=== PATIENT | female | born 2000 | race Caucasian/White ===

== ENCOUNTER 2022-11-23 05:02 | Inpatient (IN) | payer OTHER, MEDICAID, SELFPAY ==
[2022-11-23] VITALS (150 sets, daily range): BP systolic 88–152; BP diastolic 29–133; PULSE 70–187; RESP 18; TEMP 36.2–37; O2SAT 91–100; BMI 33.5
[2022-11-23 05:34] LABS: Basophils Percent Auto 0.4 % (0.2-1.2); Eosinophils Absolute Auto 0.1 K/mm3 (0-0.3); Eosinophils Percent Auto 0.7 % (0-4.4); Hematocrit 35.3 % (37.0-47.0); Immature Granulocyte Absolute 0.03 K/mm3 (0.00-0.031); Immature Granulocyte Percent A 0.3 % (0-0.5); Lymphocytes Absolute Auto 2.12 K/mm3 (0.9-3.2); Lymphocytes Percent Auto 21.6 % (18.3-44.2); Mean Corpuscular Hemoglobin 28.6 pg (26-34); Mean Corpuscular Volume 84.2 fl (80-100); Mean Platelet Volume 10.6 fl (7.4-10.4); Monocytes Absolute Auto 0.6 K/mm3 (0.1-0.6); Monocytes Percent Auto 5.8 % (2.6-8.5); Neutrophils Percent Auto 71.2 % (45.5-73.1); Platelet Count Result 169 k/mm3 (150-375); Red Blood Count 4.19 M/mm3 (4.2-5.4); Red Cell Distribution Width 13.2 % (11.5-14.5); White Blood Count 9.8 K/mm3 (4.5-10.0)
--- NOTE | 2022-11-23 05:35 | LDADM ---
This patient, Kirsty Perera, was admitted to Labor/Delivery/Recovery 107 on 11/23/22 at 05:02. Plans for labor, pain management and were discussed with patient. Patient/family oriented to hospital policies and general routines including ID bracelet, bed and alarms, visiting hours, pain management, procedures, bathroom and other care routines, personal items, smoking policy, room service/diet and guest tray routines, security routines, and visiting hours. Patient/Family are encouraged to report perceived risks to care and to ask questions if they do not understand what they are told or what they should do. See OBIX for further documentation.
[2022-11-23 05:47] LABS: Alanine Aminotransferase 21 U/L (6-35); Albumin Level 3.9 g/dL (3.5-5.1); Alkaline Phosphatase 174 U/L (38-126); Anion Gap 8 mmol/L (8-16); Aspartate Amino Transferase 20 U/L (14-36); Bilirubin,Total 0.5 mg/dL (0.2-1.3); Blood Urea Nitrogen 8 mg/dL (7-17); Calcium 8.6 mg/dL (8.4-10.2); Carbon Dioxide 20 mmol/L (22-30); Chloride 109 mmol/L (98-107); Estimated CRCL calculation 221 ml/min; Estimated Glomerular Filt Rate > 60; Glucose 90 mg/dL (65-110); Potassium 3.7 mmol/L (3.4-5.0); Sodium 137 mmol/L (137-145); Uric Acid 5.3 mg/dL (2.5-7.5)
[2022-11-23] MEDS: LACTATED RINGERS 1,000 ML 125 ML IV CONT ×4 (05:55→15:47)
[2022-11-23] MEDS: OXYTOCIN 30 UNITS/NS 500 ML 30 UNITS/500 ML BAG 6 UNITS IV CONT (05:55)
--- NOTE | 2022-11-23 06:11 | PM.IMHP ---
H&P: HPI History of Present Illness Date/Time: 11/23/22 06:11 Chief Complaint: Elevated blood pressure at term Narrative: this is a 22-year-old 1 para 0 whose last menstrual period was 02/01/2022, EDC is 12/06/2022, confirmed by 9 week ultrasound, who presents at 37 and 6 7th weeks gestation for induction of labor secondary to elevated blood pressures. PIH labs are being drawn. She is negative for group B strep. Prior to this was uncomplicated. She has a weed smoker [facility] Family History Family History Grandparent Diabetes mellitus Hypertension Grandparent Diabetes mellitus Grandparent Breast cancer Social History Social History Smoking status: Never smoker Substance use: never Lack of Transportation: No Lack of Food: Never True Current Housing: I Have Housing Concerned About Future Housing: No Difficulty Paying Gas/Electric Bills: No Difficulty Paying for Meds: No Currently Unemployed: No Education: High School Diploma/GED Difficulty w/ Childcare or Family Care: No Spiritual care concerns: No Meds Home Medications and Allergies Home Medications Medication Instructions Recorded Confirmed Type prenat.vits,trinidad,ymt-wazy-avqzx 1 tablet PO DAILY 11/10/22 11/23/22 History Allergies Allergy/AdvReac Type Severity Reaction Status Date / Time No Known Allergies Allergy Mild Verified 11/23/22 06:02 Vital Signs Vital Signs - 24 hr 11/23/22 05:33 11/23/22 05:45 11/23/22 06:00 Pulse Rate 92 97 93 Blood Pressure 128/86 138/94 H 127/90 Oxygen Delivery 11/23/22 05:34 Pulse Rate Blood Pressure Oxygen Delivery Room Air Exam Const: General: cooperative, healthy appearing, comfortable and overweight Orientation/consciousness: oriented to person, oriented to place and oriented to time HENMT: Head: normal to inspection Resp: Effort & Inspection: normal respiratory effort Cardio: Rate: regular rate Rhythm: regular rhythm Heart sounds: S1 normal heart sound present and S2 normal heart sound present GI: Inspection: normal to inspection Auscultation: normal bowel sounds : External Female Exam: normal external appearance Speculum Exam - Vagina: normal appearance of the vagina Speculum Exam - Cervix: normal appearance of the cervix ( cervix 275/1. AROM clear. FHTs reassuring) H&P: Results Labs Labs: Short CBC 11/23/22 Range/Units 05:16 WBC 9.8 (4.5-10.0) K/mm3 Hgb 12.0 (12.0-15.0) g/dL Hct 35.3 L (37.0-47.0) % Plt Count 169 (150-375) k/mm3 BMP 11/23/22 05:16 Sodium 137 Potassium 3.7 Chloride 109 H Carbon Dioxide 20 L BUN 8 Creatinine 0.40 L Glucose 90 Calcium 8.6 Liver Function 11/23/22 Range/Units 05:16 Total Bilirubin 0.5 (0.2-1.3) mg/dL AST 20 (14-36) U/L ALT 21 (6-35) U/L Alkaline Phosphatase 174 H (38-126) U/L Albumin 3.9 (3.5-5.1) g/dL Assessment and Plan Assessment and plan (1) Term : Code(s): Z34.90 - Encounter for supervision of normal , unspecified, unspecified trimester Status: Acute (2) Gestational hypertension: Code(s): O13.9 - Gestational [-induced] hypertension without significant proteinuria, unspecified trimester Status: Acute Plan medical induction of labor. Spontaneous vaginal delivery is expected. She has an epidural candidate. [facility] labs are drawn and pending
[2022-11-23 08:45] LABS: Amphetamine Screen Urine Negative (Negative); Barbiturate Screen Urine Negative (Negative); Benzodiazepines Screen Urine Negative (Negative); Cannabinoid Screen Urine Negative (Negative); Cocaine Screen Urine Negative (Negative); Methadone Screen Urine Negative (Negative); Opiate Screen Urine Negative (Negative); Phencyclidine Screen Urine Negative (Negative)
--- NOTE | 2022-11-23 11:26 | WPDANESEPP ---
Anes - Eval Pre Procedure Procedure: Labor epidural Date/Time: 11/23/22 11:26 Surgeon: Amada Black Preop Diagnosis: Pain during labor Pre Op Diagnosis: IOL Patient Data Age: 22 Gender: F Height: 1.73 m Weight: 100 kg Last Vital Signs Temp 36.2 C L 11/23/22 08:17 Pulse 82 11/23/22 11:00 BP 129/84 11/23/22 11:00 O2 Del Method Room Air 11/23/22 05:34 Allergies Allergy/AdvReac Type Severity Reaction Status Date / Time No Known Allergies Allergy Mild Verified 11/23/22 06:02 Home Medications Medication Instructions Recorded Confirmed Type prenat.vits,trinidad,urf-azqm-mmfxg 1 tablet PO DAILY 11/10/22 11/23/22 History Laboratory Tests 11/23/22 11/23/22 11/23/22 05:16 05:16 05:16 WBC 9.8 K/mm3 K/mm3 (4.5-10.0) RBC 4.19 M/mm3 L M/mm3 (4.2-5.4) Hgb 12.0 g/dL g/dL (12.0-15.0) Hct 35.3 % L % (37.0-47.0) MCV 84.2 fl fl (80-100) MCH 28.6 pg pg (26-34) MCHC 34.0 g/dl g/dl (32-36) RDW 13.2 % % (11.5-14.5) Plt Count 169 k/mm3 k/mm3 (150-375) MPV 10.6 fl H fl (7.4-10.4) Immature Gran % (Auto) 0.3 % % (0-0.5) Neut % (Auto) 71.2 % % (45.5-73.1) Lymph % (Auto) 21.6 % % (18.3-44.2) Kemper % (Auto) 5.8 % % (2.6-8.5) Eos % (Auto) 0.7 % % (0-4.4) Baso % (Auto) 0.4 % % (0.2-1.2) Lymph # (Auto) 2.12 K/mm3 K/mm3 (0.9-3.2) Kemper # (Auto) 0.6 K/mm3 K/mm3 (0.1-0.6) Eos # (Auto) 0.1 K/mm3 K/mm3 (0-0.3) Baso # (Auto) 0.0 K/mm3 K/mm3 (0.0-0.1) Abs Immat Gran (auto) 0.03 K/mm3 K/mm3 (0.00-0.031) Absolute Neuts (auto) 7.0 K/mm3 H K/mm3 (1.3-6.7) Absolute Nucleated RBC 0.0 K/mm3 K/mm3 (0.0-0.012) Nucleated RBC % 0.0 % % (0.0-0.2) Sodium Potassium Chloride Carbon Dioxide Anion Gap BUN Creatinine Estim Creat Clear Calc Estimated GFR Glucose Uric Acid 5.3 mg/dL mg/dL (2.5-7.5) Calcium Total Bilirubin AST ALT Alkaline Phosphatase Total Protein Albumin Urine Opiates Screen Urine Methadone Screen Ur Barbiturates Screen Ur Phencyclidine Scrn Ur Amphetamine Screen U Benzodiazepines Scrn Urine Cocaine Screen U Cannabinoids Screen RPR Pending Blood Type Antibody Screen 11/23/22 11/23/22 11/23/22 05:16 05:16 08:15 WBC RBC Hgb Hct MCV MCH MCHC RDW Plt Count MPV Immature Gran % (Auto) Neut % (Auto) Lymph % (Auto) Kemper % (Auto) Eos % (Auto) Baso % (Auto) Lymph # (Auto) Kemper # (Auto) Eos # (Auto) Baso # (Auto) Abs Immat Gran (auto) Absolute Neuts (auto) Absolute Nucleated RBC Nucleated RBC % Sodium 137 mmol/L mmol/L (137-145) Potassium 3.7 mmol/L mmol/L (3.4-5.0) Chloride 109 mmol/L H mmol/L (98-107) Carbon Dioxide 20 mmol/L L mmol/L (22-30) Anion Gap 8 mmol/L mmol/L (8-16) BUN 8 mg/dL mg/dL (7-17) Creatinine 0.40 mg/dL L mg/dL (0.7-1.0) Estim Creat Clear Calc 221 ml/min ml/min Estimated GFR > 60 (59 - ) Glucose 90 mg/dL mg/dL (65-110) Uric Acid Calcium 8.6 mg/dL mg/dL (8.4-10.2) Total Bilirubin 0.5 mg/dL mg/dL (0.2-1.3) AST 20 U/L U/L (14-36)
[2022-11-23 15:09] LABS: Rapid Plasma Reagin Non-Reactive (NonReactive)
[2022-11-23] MEDS: SODIUM CHLORIDE 0.9% IV 300 ML 600 ML I-UTERINE (15:54)
--- NOTE | 2022-11-23 16:03 | PM.OBPNLAB ---
Pain Control Date/time seen: 11/23/22 16:03 Pain control: tolerating well and epidural Pelvic Exam Dilation (cm): 7 Effacement (%): 90 station: -1 Amniotic membrane status: Leaking Contractions Monitor mode: Internal
--- NOTE | 2022-11-23 18:05 | PM.OBPRVD ---
OB - Delivery Note Procedure Delivery date: 11/23/22 Procedure: mil Events: Gestational Hypertension Induction method: AROM Delivery augmentation: Pitocin Delivery monitor: Internal FHT and Internal Uterine Route of delivery: Episiotomy description: None Laceration Description: None Specimen: No Quantitative Blood Loss (ml): 160 Anesthesia type: Epidural Disposition: Floor Baby Date of : 11/23/22 Time of : 17:55 Weeks of gestation at delivery: 37 Infant gender: Male presentation: vertex position: Right Occiput Anterior Placenta delivery description: Spontaneous Cord Vessel Description: 3 Vessels and Delayed Cord Clamping score one minute: 8 score five minutes: 9
[2022-11-23] MEDS: OXYTOCIN 30 UNITS/NS 500 ML 30 UNITS/500 ML BAG 125 UNITS IV CONT (18:22)
--- NOTE | 2022-11-23 19:43 | PC.NURSE ---
Report given to
[2022-11-23] MEDS: WITCH HAZEL 40 PADS 1 PAD TOPICAL (19:52)
[2022-11-23] MEDS: BENZOCAINE 20% AER SPR (*SP) 56 GM CAN 1 SPRAY TOPICAL (19:52)
[2022-11-24] VITALS (7 sets, daily range): BP systolic 133–150; BP diastolic 68–93; PULSE 88–101; RESP 18; TEMP 36.3–37.1; O2SAT 97–100
[2022-11-24 05:07] LABS: Hematocrit 33.6 % (37.0-47.0); Hemoglobin 11.2 g/dL (12.0-15.0)
[2022-11-24] MEDS: MULTIVIT/MIN/PREN/FOL AC/IRON TABLET 1 TAB PO (09:30)
--- NOTE | 2022-11-24 09:32 | PM.DS ---
DS: Admitting Diagnosis Discharge Date 11/25/2022 Admitting Diagnosis 37 week with gestational hypertension DS: Discharge Diagnosis Discharge Diagnosis (1) Gestational hypertension: Code(s): O13.9 - Gestational [-induced] hypertension without significant proteinuria, unspecified trimester Status: Acute (2) Term : Code(s): Z34.90 - Encounter for supervision of normal , unspecified, unspecified trimester Status: Acute DS: Summary Hospital Course Reason for hospitalization: the patient was admitted for induction of labor secondary to elevated blood pressures Hospital Course: patient went successful medical induction of labor with spontaneous vaginal delivery of a male. Her blood pressures normalized postoperatively. She remained afebrile. She was up, eating regular ambulating breast-feeding, voiding without difficulty generally without complaints. Time Spent with Patient Time attestation: Total time spent providing and/or coordinating discharge services: Exam Const: General: cooperative, healthy appearing and comfortable Nutritional Appearance: overweight Orientation/consciousness: oriented to person, oriented to place and oriented to time HENMT: Head: normal to inspection Resp: Effort & Inspection: normal respiratory effort Cardio: Rate: regular rate Rhythm: regular rhythm Heart sounds: S1 normal heart sound present and S2 normal heart sound present GI: Inspection: normal to inspection ( Fundus firm below the umbilicus) DS: Data Data Completed and Pending Labs on day of discharge: Labs from last 24 hours 11/24/22 11/23/22 03:36 05:16 Hgb 11.2 L Hct 33.6 L RPR Non-reactive Discharge Plan Discharge Attending physician on discharge: Cesar Mendoza Discharging Clinician: Cesar Mendoza Patient Disposition: Home, Self-Care Activity: may shower, no straining and pelvic rest Diet: as tolerated Wound Care Instructions: follow printed instructions Discharge Instructions: Education: Mom and Baby Guide Given to: Mother Follow-Up: Call your delivering provider's office for an appointment to be seen in: 6 Weeks Mom [facility] baby [facility] for the follow-up appointment. Appointment Date/Time: November 28, 2022 at 11:00 am What to expect at your follow-up visit: Blood Pressure Check Physical Assessment Call [phone] if you are unable to keep your appointment time. BREAST CARE: * Wear a snug supportive bra. * For engorgement discomfort: Breast Feeding: * Apply warm moist washcloths * Express milk as needed to relieve engorgement * Wear loose clothing Bottle Feeding: * May apply ice packs * For sore nipples: * Identify correct latch-on * Apply warm moist washcloths before and after nursing * Air dry nipples after nursing * May apply Lansinoh cream to nipples EPISIOTOMY/PERINEAL CARE: * Until bleeding stops, use your cameron bottle after urinating * Change your pad frequently throughout the day * You may take sitz baths several times a day (fill your bathtub with warm water and soak for 20 minutes.) Do NOT bathe in the water * No tub baths until seen by your physician - You may shower ACTIVITY: * Rest as much as possible. * Do not exercise or lift anything heavier than your baby (such as laundry or other children.) * Avoid stairs or driving as much as possible. * Do not put anything into the vagina. No douching, tampons, or sexual activity until seen by physician. NOTIFY PHYSICIAN IF YOU HAVE ANY QUESTIONS OR IF ANY OF THE FOLLOWING SYMPTOMS OCCUR: * If your vaginal area becomes red, swollen, or more painful than what you have experienced in the hospital. * If your vaginal bleeding becomes foul smelling. * If your vaginal bleeding becomes more heavy than a period or i
--- NOTE | 2022-11-24 10:02 | WPDANLDPN2 ---
Anes-Prog Note L&D Date/Time: 11/24/22 10:02 Comfortable throughout: labor and delivery Neuraxial method: epidural Epidural/Spinal procedure site: clean & non-tender Neuro status: Neuro function grossly intact. Cardiovascular status: normal Respiratory status: normal Airway patency: baseline Mental status: baseline Post-Op hydration status: normal Vital Signs: Last Vital Signs Temp 97.4 F L 11/24/22 09:10 Pulse 92 11/24/22 09:10 Resp 18 11/24/22 09:10 BP 133/68 11/24/22 09:10 Pulse Ox 98 11/24/22 09:10 O2 Del Method Room Air 11/23/22 23:00 Pain score (VAS): 0 I/O: Intake & Output 11/23/22 11/24/22 11/24/22 23:59 07:59 15:59 Intake Total 500 Output Total 230 Balance 270 Post-procedural complaints: none Patient feedback: Patient satisfied with anesthetic care.
--- NOTE | 2022-11-24 11:20 | PC.NURSE ---
Patient viewed the discharge video Mother & Baby Care, The First Two Weeks . Patient was given the opportunity and encouraged to ask questions. Patient verbalized understanding of information shared and has been given the mother/baby guide for home reference.
--- NOTE | 2022-11-24 13:07 | PC.NURSE ---
1140- Introduction was made in the 1st floor nursery. is holding the nipple shield in his mouth and mother is on the phone. Nursery RN reported that mother had just finished with a nipple shield and needed to pump. [id number] Breast pump provided due to separation. Instructions given on cleaning, care, usage, that there should be no pain, pumping schedule for milk production, collection, and storage of human milk. Mother is encouraged to record pumping schedule on the pumping log. Patient was assessed for correct placement, flange size, to pump for comfort and nipple stretching/stimulation for adequate milk production every 3 hours (8 times in 24 hours) 1-2 times at night. Mother voiced understanding of the education shared along with mom and baby guide for additional resource information. Reported to the primary RN.
--- NOTE | 2022-11-24 14:08 | PC.NURSE ---
0720-Down to Level II nursery to breastfeed baby. 0900-Returned back to floor via wheelchair.
--- NOTE | 2022-11-24 14:09 | PC.NURSE ---
1045-Down to Level II nursery to breastfeed baby. 1145-Returned back to floor via wheelchair.
--- NOTE | 2022-11-24 14:32 | PC.NURSE ---
[id number] Consulted with patient to assess needs related to with her in the 1st floor nursery. Encouraged skin to skin before beginning the session and mother wants to attempt to breastfeed without the nipple shield. When skin to skin feeding cues were visualized and Mother demonstrates positioning her to the right breast using the cross cradle position, supporting the breast with a good sandwich hold, with good alignment and pillows for support. would at times latch for a few sucks, at times for about 5 minutes, then when dimpling is seen mother is instructed to remove infant and attempt again. latched several times for a few minutes at a time, then would stop. Mother opted to syringe feed her and declined working with the nipple shield at this time. After supplementing with a 2ml syringe feeding infant was placed skin to skin, then after feeding cues were visualized we reviewed positioning and alignment, supporting breast, off-centered (asymmetrical latch) and leading with the chin with big, open, wide gape. Infant latched optimally to the left breast in football position. Education given to mother of how to visualize suck/swallow ratios and listen for drinking at the breast. was able to maintain latch without discomfort to mother for six minutes, then came off and latched for another nine minutes effectively drinking. Mother states she is drowsy and cramping. Patient declined water and medication at this time. Nipple care reviewed with optimal latch, good positioning and using clean hands when feeding her infant and touching her breast. Resources used to facilitate learning were used earlier from the visual handout, QR codes, tool, mom and baby guide. Mother voiced understanding of the education shared, to call for assistance if the does not latch or if there is discomfort with . Reported to the primary RN.
--- NOTE | 2022-11-24 14:52 | PC.NURSE ---
1330-Down to Level II nursery to breastfeed baby. 1450-Returned back to floor via wheelchair.
--- NOTE | 2022-11-24 16:16 | PC.NURSE ---
1600- Checked with mother on her needs for and offered assistance with the next session. We reviewed good positioning, supporting the breast and giving a big mouthful. Mother states she is confident and she plans to attempt to breastfeed on the right breast using the football position like we did earlier on the left. Mother does teach back to demonstrate her understanding and RN encouraged her efforts. Reported to the Primary RN
[2022-11-25] MEDS: MULTIVIT/MIN/PREN/FOL AC/IRON TABLET 1 TAB PO (08:30)
[2022-11-25] MEDS: DOCUSATE SODIUM 100 MG CAPSULE PO (08:30)
[2022-11-25 09:00] VITALS: BP 126/85; PULSE 90; RESP 14; TEMP 36.9; O2SAT 98
--- NOTE | 2022-11-25 10:47 | PM.OBPNVD ---
OB - PN: Subj Subjective Date/time seen: 11/25/22 10:47 Narrative: Pain OK. Desires circumcision for son. Would like to go home. OB - PN: Obj Data Labs 11/24/22 03:36 11/23/22 05:16 OB - PN A/P Plan day: 2 Comments: A: PPD#2, doing well. HTN, stable without meds. P: Reviewed circ. Home to f/u 6 weeks. Time Spent With Patient Time with patient: less than 15 minutes Exam Psych: Other: AVSS ABD soft, nontender, fundus firm EXT nontender
[2022-11-25 12:30] VITALS: BP 128/86; PULSE 68; RESP 16; TEMP 36.9; O2SAT 99
[2022-11-28 11:52] VITALS: BP 130/80; PULSE 79; RESP 16; TEMP 37.4; O2SAT 97
== END 2022-11-25 15:15 | disposition home or self-care (01) | DRG 807 ==
LOC: ANHLDR 05:07 → ANHOB2 20:13
PROVIDERS: Admitting Provider Obstetrics & Gynecology; Visit Provider Obstetrics & Gynecology
DX: O13.4 Gestational [pregnancy-induced] hypertension without significant proteinuria, complicating childbirth (principal); Z37.0 Single live birth; Z3A.37 37 weeks gestation of pregnancy
CPT/HCPCS: 36415; 80053; 80307; 84550; 85014; 85018; 85025; 86592; 86850; 86900; 86901; A9270; J2590; J2795; J7030; J7120

== ENCOUNTER 2024-01-30 08:56 | Emergency (ER) | payer OTHER, MEDICAID, SELFPAY ==
--- NOTE | ~2024-01-30 | XR_ITS ---
EXAMINATION: XR abdomen/kub 1V DATE: 01/30/2024 09:51 INDICATION: Right upper quadrant abdominal pain. TECHNIQUE: A supine view of the abdomen on 2 radiographs was obtained. COMPARISON: None. FINDINGS: There are no dilated loops of bowel. There is a moderate volume of stool in the colon. No v isible urolithiasis. IMPRESSION: 1. Normal bowel gas pattern. Reviewed, dictated and finalized at location A.
[2024-01-30 09:16] VITALS: BP 118/71; PULSE 77; RESP 16; TEMP 36.1; O2SAT 100
--- NOTE | 2024-01-30 15:19 | ED.ABDPAIN ---
HPI - Abdominal Pain General Chief Complaint: Abdominal Pain Stated Complaint: upper abdominal pain Time Seen by Provider: 01/30/24 09:20 Source: patient Mode of arrival: ambulatory Limitations: no limitations History of Present Illness HPI narrative: 23-year-old female presents with complaint of a dull discomfort to her right upper quadrant for the past 4-5 days. That discomfort is worse with movement. 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 Patient denies nausea vomiting diarrhea. Reports that she has been having bowel movements but that they are smaller than usual. No urinary symptoms. Patient rates pain /10. States that sometimes she does not even notice the pain. Has a primary care physician but has not called for an appointment. patient states that she is leaving to go out of town for vacation and wanted to see what the pain is from prior to leaving. All systems reviewed and negative except as noted above. Related Data Allergies Allergy/AdvReac Type Severity Reaction Status Date / Time No Known Allergies Allergy Mild Verified 01/30/24 09:04 Review of Systems Review of Systems: CONSTITUTIONAL: Denies fever, chills, or sweats. EYES: Denies visual changes, redness, or discharge. ENT: Denies rhinorrhea, congestion, sore throat, or otalgia. CARDIOVASCULAR: Denies chest pain, palpitations, or edema. RESPIRATORY: Denies cough or dyspnea. GASTROINTESTINAL: Reports right upper abdominal pain, bowel movement smaller than usual. Denies nausea, vomiting, or diarrhea. GENITOURINARY: Denies dysuria or hematuria. SKIN: Denies rash or itching. MUSCULOSKELETAL: Denies back pain, joint pain, or myalgia. NEUROLOGIC: Denies headache, numbness, or weakness. PSYCHIATRIC: Denies anxiety or depression. All other systems reviewed are negative, except as documented in HPI. [facility] Family History Family History Grandparent Diabetes mellitus Hypertension Grandparent Diabetes mellitus Grandparent Breast cancer Social History Social History Smoking status: Never smoker Substance use: never Lack of Transportation: No Lack of Food: Never True Current Housing: I Have Housing Concerned About Future Housing: No Difficulty Paying Gas/Electric Bills: No Difficulty Paying for Meds: No Currently Unemployed: No Education: High School Diploma/GED Difficulty w/ Childcare or Family Care: No Spiritual care concerns: No Comments At time of signature, agree with nursing past medical, surgical, social and family history. There is no relevant family history pertinent to the presenting complaint. Exam Narrative: GENERAL: This is a well-nourished, well-developed patient, in no apparent distress. HEAD: normocephalic, atraumatic. EYES: PERRL. Sclera clear/white. Vision is grossly intact. EARS: External ears normal NOSE: External nose normal NECK: Neck supple, non-tender without lymphadenopathy, masses or thyromegaly. CARDIOVASCULAR: Regular rate and rhythm without murmurs, gallops, or rubs. RESPIRATORY: Clear to auscultation. Breath sounds equal bilaterally. No wheezes, rales, or rhonchi. GASTROINTESTINAL: Abdomen soft, non-tender, nondistended. Bowel sounds are active. No hepato-splenomegaly, or palpable masses. No guarding. SKIN: warm, Dry, intact with no suspicious lesions or rash, good texture and turgor. NEURO: awake, alert, and oriented to person, place and time. There were no obvious focal neurologic abnormalities. EXTREMITIES: No joint tenderness, effusion, or edema noted. Course Course Level of Care: Express Care Visit Vital Signs Vital signs: Vital Signs Temperature 36.1 C L 01/30/24 09:16 Pulse Rate 77 01/30/24 09:16 Respiratory Rate 16 01/30/24 09:16 Blood Pressure 118/71 01/30/24 09:16 Pulse Oximetry 100
== END 2024-01-30 10:12 | disposition home or self-care (01) ==
PROVIDERS: Emergency Provider Nurse Practitioner Family
DX: N39.0 Urinary tract infection, site not specified (principal); K59.00 Constipation, unspecified
CPT/HCPCS: 74018; 81003; 81025; 87086; 99213; G0463

== ENCOUNTER 2024-04-27 12:10 | Emergency (ER) | payer OTHER, MEDICAID, SELFPAY ==
[2024-04-27 12:21] VITALS: BP 152/100; PULSE 88; RESP 20; TEMP 36.6; O2SAT 97
[2024-04-27 13:50] VITALS: BP 129/73; PULSE 88; RESP 16; O2SAT 100
[2024-04-27 14:21] LABS: Influenza A QL RT-PCR Negative (Negative); Influenza B QL RT-PCR Negative (Negative); RSV RNA, RT-PCR Negative (Negative); SARS-CoV-2 RNA PCR Negative (Negative)
--- NOTE | 2024-04-27 15:21 | ED.GENADULT ---
HPI - General Adult General Chief complaint: Unspecified Stated complaint: sick for two weeks Time Seen by Provider: 04/27/24 12:57 History of Present Illness HPI narrative: 23 year old female presenting with nasal congestion, sore throat, raspy voice. States it has been ongoing for 10. Thinks that she caught something from a patient at work as she is a [employer]. No further complaints. Related Data Allergies Allergy/AdvReac Type Severity Reaction Status Date / Time No Known Allergies Allergy Mild Verified 01/30/24 09:04 Review of Systems Review of Systems: All systems reviewed & are unremarkable except as noted in HPI and below PMFSH Family History Family History Grandparent Diabetes mellitus Hypertension Grandparent Diabetes mellitus Grandparent Breast cancer Social History Social History Smoking status: Never smoker Substance use: never Lack of Transportation: No Lack of Food: Never True Current Housing: I Have Housing Concerned About Future Housing: No Difficulty Paying Gas/Electric Bills: No Difficulty Paying for Meds: No Currently Unemployed: No Education: High School Diploma/GED Difficulty w/ Childcare or Family Care: No Spiritual care concerns: No Exam Narrative: GENERAL: Nontoxic, no acute distress HEAD: Normocephalic, atraumatic. EYES: PERRLA and EOMI. ENT: + nasal congestion. Mucous membranes moist. NECK: Supple. CHEST: No respiratory distress. scattered wheezing bilaterally HEART: Regular rate and rhythm EXTREMITIES: Normal range of motion. SKIN: Warm, dry, no rash. NEURO: No focal deficits. Alert and oriented x3. PSYCH: Normal mood and affect. Course Vital Signs Vital signs: Vital Signs Temperature 97.8 F 04/27/24 12:21 Pulse Rate 88 04/27/24 12:21 Respiratory Rate 20 04/27/24 12:21 Blood Pressure 152/100 H 04/27/24 12:21 Pulse Oximetry 97 04/27/24 12:21 Oxygen Delivery Room Air 04/27/24 12:21 Temperature 97.8 F 04/27/24 12:21 Pulse Rate 88 04/27/24 12:21 Respiratory Rate 20 04/27/24 12:21 Blood Pressure 152/100 H 04/27/24 12:21 Pulse Oximetry 97 08/25/24 12:21 Oxygen Delivery Room Air 04/27/24 12:21 Medical Decision Making MDM Narrative Medical decision making narrative: 23-year-old female presenting with nasal congestion, sore throat. Vitals are stable. Exam remarkable for the above. Negative for COVID, influenza, RSV. Patient does have some wheezing on exam. will start her on Medrol Dosepak and an inhaler for symptomatic relief. PCP follow-up. Discharged in stable condition. Differential Diagnosis Differential Diagnosis: Bronchitis, viral URI, influenza, COVID Medical Records Medical records reviewed: Yes I reviewed the external patient's medical records. Vital Signs Vital Signs: Vital Signs Temperature 97.8 F 04/27/24 12:21 Pulse Rate 88 04/27/24 12:21 Respiratory Rate 20 04/27/24 12:21 Blood Pressure 152/100 H 04/27/24 12:21 Pulse Oximetry 97 04/27/24 12:21 Oxygen Delivery Room Air 04/27/24 12:21 Temperature 97.8 F 04/27/24 12:21 Pulse Rate 88 04/27/24 12:21 Respiratory Rate 20 04/27/24 12:21 Blood Pressure 152/100 H 04/27/24 12:21 Pulse Oximetry 97 04/27/24 12:21 Oxygen Delivery Room Air 04/27/24 12:21 Lab Data Lab results reviewed: Yes I reviewed the patient's lab results. Labs: Lab Results 04/27/24 Range/Units 13:25 Influenza A (RT-PCR) Negative (Negative) Influenza B (RT-PCR) Negative (Negative) RSV (RT-PCR) Negative (Negative) SARS-CoV-2 RNA (RT-PCR) Negative (Negative) Critical Care Time Critical Care Time Critical Care Time: No Discharge Plan Discharge Clinical Impression: Bronchitis, Viral URI Patient Disposition: Home, Self-Care Condition: Stable Instructio
[2024-04-27 16:01] VITALS: BP 133/75; PULSE 91; RESP 20; TEMP 36.7; O2SAT 99
== END 2024-04-27 16:03 | disposition home or self-care (01) ==
PROVIDERS: Emergency Provider Emergency Medicine
DX: J40 Bronchitis, not specified as acute or chronic (principal); J06.9 Acute upper respiratory infection, unspecified; B97.89 Other viral agents as the cause of diseases classified elsewhere; Z20.822 Contact with and (suspected) exposure to COVID-19
CPT/HCPCS: 87637; 99283